=== PATIENT | female | born 1980 | race African-American/Black ===

== ENCOUNTER 2019-03-05 04:40 | Emergency (ER) | payer OTHER ==
[~2019-03-05] VITALS: Ht 157.5 cm; Wt 79.4 kg
--- NOTE | 2019-03-05 04:45 | NUR ---
ED Nurse Note: CALLED FOR TRIAGE; NOT IN WAITING ROOM.
--- NOTE | 2019-03-05 05:05 | NUR ---
ED Nurse Note: Patient walked in to ER c/o abdominal pain, N/V/D. States that ate spaghetti for the diner. Patient presented AAO x4,. VSS at this time, skin is warm to touch. ER by bed side, will continue to monitor.
[2019-03-05 05:15] VITALS: BP 122/82
[2019-03-05] MEDS ORDERED: Mylanta II UD 30ml ORAL ONE (05:15)
[2019-03-05] MEDS ORDERED: Lidocaine 2% Visc 15ml soln ORAL ONE (05:15)
[2019-03-05] MEDS ORDERED: Dicyclomine HCl 10mg/5ml oral soln ORAL ONE (05:15)
[2019-03-05 05:29] LABS: BASOPHILS % (AUTO) 1.4 % (0.0-2.0); EOSINOPHILS % (AUTO) 0.8 % (0.0-3.0); HEMATOCRIT 40.6 % (37.0-47.0); HEMOGLOBIN 13.4 G/DL (12.0-16.0); LYMPHOCYTES % (AUTO) 24.5 % (20.0-45.0); MEAN CORPUSCULAR VOLUME 92 FL (80-99); MONOCYTES % (AUTO) 5.4 % (1.0-10.0); NEUTROPHILS % (AUTO) 67.9 % (45.0-75.0); PLATELET COUNT 258 K/UL (150-450); RED BLOOD COUNT 4.41 M/UL (4.20-5.40); RED CELL DISTRIBUTION WIDTH 13.6 % (11.6-14.8); WHITE BLOOD COUNT 6.7 K/UL (4.8-10.8)
[2019-03-05] MEDS ORDERED: Morphine Sulfate 4mg/ml Inj (IV USE ONLY) IVP ONE (05:30)
[2019-03-05 05:34] LABS: ANION GAP 8 mmol/L (5-15); BLOOD UREA NITROGEN 18 mg/dL (7-18); CALCIUM 9.4 MG/DL (8.5-10.1); CARBON DIOXIDE 30 MMOL/L (21-32); CHLORIDE 104 MMOL/L (98-107); CREATININE 1.1 MG/DL (0.55-1.30); POTASSIUM 4.2 MMOL/L (3.5-5.1); SODIUM 141 MMOL/L (136-145)
[2019-03-05 05:39] LABS: ALANINE AMINOTRANSFERASE 25 U/L (12-78); ALBUMIN 4.2 G/DL (3.4-5.0); ALKALINE PHOSPHATASE 51 U/L (46-116); ASPARTATE AMINO TRANSFERASE 17 U/L (15-37); BILIRUBIN,TOTAL 0.4 MG/DL (0.2-1.0)
[2019-03-05] MEDS ORDERED: RANITIDINE HCL150 MG ORAL (06:13)
[2019-03-05] MEDS ORDERED: DICYCLOMINE HCL10 MG ORAL (06:13)
[2019-03-05] MEDS ORDERED: ONDANSETRON ODT4 MG BC (06:13)
[2019-03-05 06:15] LABS: APPEARANCE,URINE SLIGHTLY CLOUDY; BILIRUBIN, URINE NEGATIVE (NEGATIVE); GLUCOSE, URINE (UA) NEGATIVE (NEGATIVE); KETONES,URINE NEGATIVE (NEGATIVE); LEUKOCYTE ESTERASE ,URINE 1+ (NEGATIVE); NITRITE,URINE NEGATIVE (NEGATIVE); PH,URINE 7 (4.5-8.0); PROTEIN,URINE 1+ (NEGATIVE); UROBILINOGEN,URINE NORMAL MG/DL (0.0-1.0)
[2019-03-05] MEDS ORDERED: Ketorolac 30mg Inj IV ONE (06:15)
--- NOTE | 2019-03-05 06:15 | Emergency Room Report ---
History of Present Illness General Chief Complaint: Abdominal Pain Source: Patient (Johnathon Rossi MD) Present Illness HPI 39-year-old female presents ED for evaluation. Complaining of abdominal pain with vomiting and diarrhea. Started 3 hours ago. Pain is cramping, 8 out of 10 , nonradiating. Notes multiple episodes of vomiting and diarrhea. Denies fevers or chills. Denies recent travel. Denies recent antibiotic use. Started shortly after eating dinner. No other aggravating relieving factors. Denies any other associated symptoms (Johnathon Rossi MD) Allergies: Coded Allergies: TEMAZEPAM (Verified Allergy, Unknown, 03/05/19) Patient History Past Medical History: none Past Surgical History: none Pertinent Family History: none Social History: Denies: smoking, alcohol use, drug use Last Menstrual Period: 02/22/19 Now: No Immunizations: UTD Reviewed Nursing Documentation: PMH: Agreed; PSxH: Agreed (Johnathon Rossi MD) Review of Systems All Other Systems: negative except mentioned in HPI (Johnathon Rossi MD) Physical Exam Vital Signs Date Time Temp Pulse Resp B/P (MAP) Pulse Ox O2 Delivery O2 Flow Rate FiO2 03/05/19 04:47 97.7 73 22 122/82 (95) 99 Room Air Sp02 EP Interpretation: reviewed, normal General Appearance: no apparent distress, alert, GCS 15, non-toxic Head: normocephalic, atraumatic Eyes: bilateral eye normal inspection, bilateral eye PERRL ENT: hearing grossly normal, normal pharynx, no angioedema, normal voice Neck: full range of motion, supple/symm/no masses Respiratory: chest non-tender, lungs clear, normal breath sounds, speaking full sentences Cardiovascular #1: regular rate, rhythm, no edema Cardiovascular #2: 2+ carotid (R), 2+ carotid (L), 2+ radial (R), 2+ radial (L) , 2+ dorsalis pedis (R), 2+ dorsalis pedis (L) Gastrointestinal: normal bowel sounds, soft, non-distended, no guarding, no rebound, tenderness Rectal: deferred Genitourinary: normal inspection, no CVA tenderness Musculoskeletal: back normal, gait/station normal, normal range of motion, non- tender Neurologic: alert, oriented x3, responsive, motor strength/tone normal, sensory intact, speech normal Psychiatric: judgement/insight normal, memory normal, mood/affect normal, no suicidal/homicidal ideation Reflexes: 3+ bicep (R), 3+ bicep (L), 3+ tricep (R), 3+ tricep (L), 3+ knee (R) , 3+ knee (L) Lymphatic: no adenopathy (Johnathon Rossi MD) Medical Decision Making Diagnostic Impression: Primary Impression: Gastroenteritis Labs Test 03/05/19 05:00 03/05/19 05:50 White Blood Count 6.7 K/UL (4.8-10.8) Red Blood Count 4.41 M/UL (4.20-5.40) Hemoglobin 13.4 G/DL (12.0-16.0) Hematocrit 40.6 % (37.0-47.0) Mean Corpuscular Volume 92 FL (80-99) Mean Corpuscular Hemoglobin 30.3 PG (27.0-31.0) Mean Corpuscular Hemoglobin Concent 33.0 G/DL (32.0-36.0) Red Cell Distribution Width 13.6 % (11.6-14.8) Platelet Count 258 K/UL (150-450) Mean Platelet Volume 5.9 FL (6.5-10.1) Neutrophils (%) (Auto) 67.9 % (45.0-75.0) Lymphocytes (%) (Auto) 24.5 % (20.0-45.0) Monocytes (%) (Auto) 5.4 % (1.0-10.0) Eosinophils (%) (Auto) 0.8 % (0.0-3.0) Basophils (%) (Auto) 1.4 % (0.0-2.0) Sodium Level 141 MMOL/L (136-145) Potassium Level 4.2 MMOL/L (3.5-5.1) Chloride Level 104 MMOL/L (98-107) Carbon Dioxide Level 30 MMOL/L (21-32) Anion Gap 8 mmol/L (5-15) Blood Urea Nitrogen 18 mg/dL (7-18) Creatinine 1.1 MG/DL (0.55-1.30) Estimat Glomerular Filtration Rate > 60 mL/min (>60) Glucose Level 127 MG/DL (74-106) Calcium Level 9.4 MG/DL (8.5-10.1) Total Bilirubin 0.4 MG/DL (0.2-1.0) Aspartate Amino Transf (AST/SGOT) 17 U/L (15-37) Alanine Aminotransferase (ALT/SGPT) 25 U/L (12-78) Alkaline Phosphatase 51 U/L (46-116) Total Protein 8.5 G/DL (6.4-8.2) Albumin 4.2 G/DL (3.4-5.0) Globulin 4.3 g/dL Albumin/Globulin Ratio 1.0 (1.0-2.7) Lipase 64 U/L (73-393) Human Chorionic Gonadotropin, Qual Negative (NEGATIVE) Urine HCG, Qualitative Negative (NEGATIVE) (Johnathon Rossi MD) ER Course The patient was endorsed to me by Dr. Rossi. Patient was noted to be vomiting as well as having diarrhea. She reports having some recent alcohol intake. she had nonbilious emesis and left upper abdomen pain.. Patient was noted to have some lower abdominal discomfort. CT imaging was ordered to patient's persistent pain after medications. (Puneet Rodríguez MD) Last Vital Signs Date Time Temp Pulse Resp B/P (MAP) Pulse Ox O2 Delivery O2 Flow Rate FiO2 03/05/19 05:51 97.7 03/05/19 05:15 22 122/82 99 Room Air 03/05/19 05:15 73 (Johnathon Rossi MD) Disposition: HOME, SELF-CARE Condition: Stable Scripts Dicyclomine Hcl* (DICYCLOMINE HCL*) 10 Mg Capsule 10 MG ORAL QID, #20 CAP Prov: Johnathon Rossi MD 03/05/19 Ondansetron Odt* (ZOFRAN ODT*) 4 Mg Tab.rapdis 4 MG BC EVERY 6 HOURS PRN for Nausea & Vomiting, #20 TAB 0 Refills Prov: Johnathon Rossi MD 03/05/19 Ranitidine Hcl* (ZANTAC*) 150 Mg Tablet 150 MG ORAL TWICE A DAY, #30 TAB Prov: Johnathon Rossi MD 03/05/19 Patient Instructions: Viral Gastroenteritis, Adult, Odmd-gl-Toid Johnathon Rossi MD Mar 05, 2019 06:15 Puneet Rodríguez MD Mar 05, 2019 06:54
[2019-03-05 06:18] LABS: COLOR,URINE YELLOW
[2019-03-05] MEDS ORDERED: Omnipaque-300 100ml vial INJ PRN (07:00)
[2019-03-05] MEDS ORDERED: Metoclopramide 10mg/2ml Inj IVP ONE (07:00)
[2019-03-05 07:30] VITALS: BP 99/60
--- NOTE | 2019-03-05 07:30 | NUR ---
ED Nurse Note: patient taken to CT via wheelchair
--- NOTE | 2019-03-05 07:49 | NUR ---
ED Nurse Note: patient came back from CT.
[2019-03-05] MEDS ORDERED: Haloperidol Lactate 5 MG in D5W 55 ML IVPB ONE (08:00)
--- NOTE | 2019-03-05 08:16 | Diagnostic Imaging Report ---
EXAM: CT Abdomen and Pelvis With Intravenous Contrast CLINICAL HISTORY: ABD PAIN TECHNIQUE: Axial computed tomography images of the abdomen and pelvis with intravenous contrast. CTDI is 17.7 mGy and DLP is 1009 mGy-cm. One or more of the following dose reduction techniques were used: automated exposure control, adjustment of the mA and or kV according to patient size, use of iterative reconstruction technique. COMPARISON: No relevant prior studies available. FINDINGS: Lung bases: There is mild atelectasis in the right middle lobe. ABDOMEN: Liver: Unremarkable. No mass. Gallbladder and bile ducts: Unremarkable. No calcified stones. No ductal dilation. Pancreas: Unremarkable. No mass. No ductal dilation. Spleen: Unremarkable. No splenomegaly. Adrenals: Unremarkable. No mass. Kidneys and ureters: Unremarkable. No solid mass. No hydronephrosis. Stomach and bowel: The wall of the left colon and sigmoid colon is diffusely prominent, likely due to underdistention. There is no bowel obstruction or abnormal bowel dilatation. There is a moderate amount of stool within the cecum. There are no inflammatory changes in the bowel mesentery. PELVIS: Appendix: Normal appendix. Bladder: Unremarkable. No mass. Reproductive: Unremarkable as visualized. ABDOMEN and PELVIS: Intraperitoneal space: Unremarkable. No free air. No significant fluid collection. Bones joints: There are old fractures of the right 8th and 9th ribs. No dislocation. Soft tissues: There is diastases of the rectus abdominis muscles with slight eventration of the intraperitoneal fat and bowel. Vasculature: Unremarkable. No abdominal aortic aneurysm. Lymph nodes: Unremarkable. No enlarged lymph nodes. IMPRESSION: No acute findings in the abdomen or pelvis.
--- NOTE | 2019-03-05 08:42 | NUR ---
ED Nurse Note: patient is resting comfortably in bed. patient on a desk monitor.
--- NOTE | 2019-03-05 08:57 | NUR ---
ED Nurse Note: apple juice provided to the patient as ordered by Dr. Rodríguez.
[2019-03-05 09:15] VITALS: BP 99/63
[2019-03-05 09:18] VITALS: BP 99/60
--- NOTE | 2019-03-05 09:19 | NUR ---
ER DISCHARGE NOTE: Patient is cleared to be discharged per ERMD DR OLIVER, pt is aox4, on room air, with stable vital signs. pt was given dc and prescription instructions, pt was able to verbalize understanding, pt id band and iv site removed without complications. pt is able to ambulate with steady gait. pt took all belongings.
== END 2019-03-05 09:18 | disposition home or self-care (01) ==
LOC: EMR 05:06
DX: K52.9 Noninfective gastroenteritis and colitis, unspecified (principal); Z88.8 Allergy status to other drugs, medicaments and biological substances
CPT/HCPCS: 36415; 74177; 80053; 80307; 81003; 81025; 83690; 84703; 85025; 96361; 96374; 96375; J1630; J1885; J2270; J2405; J2765; Q9967; S0028; Z7502; 99284; J7030